=== PATIENT | male | born 1995 | race Caucasian/White ===

== ENCOUNTER 2023-11-16 02:42 | Emergency (ER) | payer BC, OTHER ==
[~2023-11-16] VITALS: Ht 167.6 cm; Wt 116.2 kg
[2023-11-16 03:28] LABS: BASO # 0.1 10^3/uL (0.0-0.2); BASO % 0.4 % (0.0-1.0); EOS # 0.2 10^3/uL (0.0-0.5); EOS % 1.5 % (0.0-3.0); HEMATOCRIT 42.8 % (42.0-52.0); HEMOGLOBIN 14.2 g/dl (13.5-17.5); LYMPH # 1.8 10^3/uL (1.5-5.0); LYMPH % 15.2 % (24.0-44.0); MEAN CORPUSCULAR HEMOGLOBIN 25.3 pg (27.0-33.0); MEAN CORPUSCULAR HGB CONC 33.2 g/dl (32.0-36.5); MEAN CORPUSCULAR VOLUME 76.3 fl (80.0-96.0); MONO # 0.9 10^3/uL (0.0-0.8); MONO % 7.9 % (2.0-8.0); NEUTROPHILS # 8.9 10^3/uL (1.5-8.5); NEUTROPHILS % 74.6 % (36.0-66.0); PLATELET COUNT, AUTOMATED 266 10^3/uL (150-450); RED BLOOD COUNT 5.61 10^6/uL (4.30-6.10)
[2023-11-16 03:54] LABS: ALBUMIN 3.6 G/DL (3.2-5.2); ALKALINE PHOSPHATASE 121 U/L (46-116); ALT/SGPT 32 U/L (7.0-40); AST/SGOT 10 U/L (<34); BILIRUBIN,DIRECT 0.2 MG/DL (<0.4); BILIRUBIN,TOTAL 0.5 MG/DL (0.3-1.2); BLOOD UREA NITROGEN 14 MG/DL (9-23); CARBON DIOXIDE LEVEL 25 MMOL/L (20-31); CHLORIDE LEVEL 106 MMOL/L (98-107); CK-MB VALUE MASS < 1.0 NG/ML (<3.6); CPK CREATINE PHOSPHOKINASE 132 U/L (46-171); CREATININE FOR GFR 0.91 MG/DL (0.70-1.30); GLOMERULAR FILTRATION RATE > 60.0 (>60); GLUCOSE, FASTING 111 MG/DL (60-100); MB/CK RELATIVE INDEX 0.75 (< OR =4); POTASSIUM SERUM 4.1 MMOL/L (3.5-5.1); SODIUM LEVEL 137 MMOL/L (136-145)
[2023-11-16 04:00] LABS: RSV AMPLIFICATION NEGATIVE (NEGATIVE)
[2023-11-16] MEDS ORDERED: ISOVUE-370 76% 100ML VIAL As Ordered ONE (06:52)
[2023-11-16] MEDS: NS 1,000 ML IV ONE (07:13)
[2023-11-16] MEDS: ALBUTEROL SULFATE 2.5MG/0.5ML INH NEB SOLN NEB ONE (08:11)
[2023-11-16 08:12] LABS: CK-MB VALUE MASS < 1.0 NG/ML (<3.6); CPK CREATINE PHOSPHOKINASE 83 U/L (46-171)
[2023-11-16] MEDS: AZITHROMYCIN 250MG TABLET PO ONE (08:21)
[2023-11-16] MEDS: cefTRIAXone SOD 1 GM in D5W MINI-BAG PLUS 50 ML IV ONE (08:21)
[2023-11-16] MEDS ORDERED: VENTAER INH (08:27)
[2023-11-16] MEDS ORDERED: CEFD300CAP PO (08:27)
[2023-11-16] MEDS ORDERED: AZIT-10 PO (08:27)
[2023-11-16] MEDS ORDERED: MUCI600T31 PO (08:27)
[2023-11-16 08:34] VITALS: BP 130/63; TEMP 97.9
[2023-11-16 08:42] VITALS: O2SAT 98
== END 2023-11-16 09:13 | disposition home or self-care (01) ==
LOC: M ED 02:42
DX: J18.1 Lobar pneumonia, unspecified organism (principal); J90 Pleural effusion, not elsewhere classified; Z79.52 Long term (current) use of systemic steroids; Z79.2 Long term (current) use of antibiotics; Z79.899 Other long term (current) drug therapy
CPT/HCPCS: 71046; 71275; 80048; 80076; 82550; 82553; 85025; 87631; 93005; 94640; 96365; 99284; J0696; Q9967

== ENCOUNTER 2025-02-13 18:18 | Emergency (ER) | payer OTHER ==
[~2025-02-13] VITALS: Ht 170.2 cm; Wt 126.8 kg
[~2025-02-13 18:18] MED LIST: AZIT-10 PO; CEFD300CAP PO; MUCI600T31 PO; VENTAER INH
[2025-02-13 20:26] VITALS: BP 150/98; TEMP 98.7; O2SAT 99
[2025-02-13] MEDS: KETOROLAC 60MG 2ML VIAL IM ONE (20:59)
[2025-02-15] MEDS ORDERED: COLA100C5 PO (12:16)
[2025-02-15] MEDS ORDERED: OXYC-517 PO (12:16)
[2025-02-15] MEDS ORDERED: ACET-907 PO (12:16)
[2025-02-15] MEDS ORDERED: CELE1CAP4 PO (12:16)
== END 2025-02-13 21:26 | disposition home or self-care (01) ==
LOC: M ED 18:18
DX: S52.225A Nondisplaced transverse fracture of shaft of left ulna, initial encounter for closed fracture (principal); S52.325A Nondisplaced transverse fracture of shaft of left radius, initial encounter for closed fracture; V86.59XA Driver of other special all-terrain or other off-road motor vehicle injured in nontraffic accident, initial encounter; Y92.009 Unspecified place in unspecified non-institutional (private) residence as the place of occurrence of the external cause; Y93.89 Activity, other specified; Y99.9 Unspecified external cause status; Z79.899 Other long term (current) drug therapy
CPT/HCPCS: 73090; 96372; 99283; J1885

== ENCOUNTER → 2025-02-15 | Day surgery (SDC) | payer OTHER ==
[~2025-02-15] VITALS: Ht 170.2 cm; Wt 126.1 kg
[~2025-02-15] MED LIST changes: +ACET-907 PO; +ACETAMINOPHEN 1000MG/100ML IV BAG As Ordered ONE; +CELE1CAP4 PO; +COLA100C5 PO; +HYDROMORPHONE HCL 0.5 MG/ 0.5 ML SYRINGE IV PRN; +HYDROmorphone HCL 2MG/ML 1ML VIAL As Ordered ONE; +LIDOCAINE 2% 100MG/5ML SDV (FOR ANES.) As Ordered ONE; +METOPROLOL 5 MG/5 ML VIAL As Ordered ONE; +MIDAZOLAM INJ 2MG/2ML VIAL As Ordered ONE; +ONDANSETRON 4MG 2ML VIAL As Ordered ONE; +OXYC-517 PO; +PROMETHAZINE 25MG/ML 1ML VIAL IV PRN; +SUGAMMADEX SODIUM 500 MG/5 ML VIAL As Ordered ONE; +fentaNYL 100 MCG/2 ML INJECTION As Ordered ONE; +propofoL 200 MG/20 ML VIAL As Ordered ONE
[2025-02-15] MEDS: TRANEXAMIC ACID 100 MG/ML 10ML VIAL IV ONE (12:15)
[2025-02-15] MEDS: ceFAZolin SOD 3 GM in DEXTROSE 5% (D5W) MINI-BAG PLU 1... IV ONE (12:15)
[2025-02-15] MEDS: TRANEXAMIC ACID 100 MG/ML 10ML VIAL As Ordered ONE (12:30)
[2025-02-15] MEDS: ceFAZolin SODIUM 3 GM VIAL As Ordered ONE (12:30)
[2025-02-15] MEDS: LR 1,000 ML IV SCH (14:35)
[2025-02-15] MEDS: ONDANSETRON 4MG 2ML VIAL IV PRN (14:55)
[2025-02-15] MEDS: METOCLOPRAMIDE INJ 10MG/2ML VIAL IV PRN (15:10)
[2025-02-15 15:24] VITALS: TEMP 98.6
[2025-02-15] MEDS: oxyCODONE 5MG TAB PO PRN (15:24)
[2025-02-15] MEDS: fentaNYL 100 MCG/2 ML INJECTION IV PRN (15:24)
[2025-02-15] MEDS: LABETALOL 100MG/20ML VIAL IV PRN (15:28)
[2025-02-15 17:00] VITALS: BP 151/71; O2SAT 94
== END | disposition home or self-care (01) ==
LOC: M SDC 09:09
PROVIDERS: ATTEND Orthopaedic Surgery
DX: S52.302A Unspecified fracture of shaft of left radius, initial encounter for closed fracture (principal); S52.202A Unspecified fracture of shaft of left ulna, initial encounter for closed fracture; V86.99XA Unspecified occupant of other special all-terrain or other off-road motor vehicle injured in nontraffic accident, initial encounter; Y93.9 Activity, unspecified; Y92.9 Unspecified place or not applicable
CPT/HCPCS: 25575; 76000; C1713; J0131; J0665; J0690; J1100; J1171; J1920; J2250; J2405; J2765; J3010

== ENCOUNTER → 2025-04-13 | Outpatient (CLI) | payer OTHER ==
[~2025-04-13] MED LIST changes: -ACETAMINOPHEN 1000MG/100ML IV BAG As Ordered ONE; -HYDROMORPHONE HCL 0.5 MG/ 0.5 ML SYRINGE IV PRN; -HYDROmorphone HCL 2MG/ML 1ML VIAL As Ordered ONE; -LIDOCAINE 2% 100MG/5ML SDV (FOR ANES.) As Ordered ONE; -METOPROLOL 5 MG/5 ML VIAL As Ordered ONE; -MIDAZOLAM INJ 2MG/2ML VIAL As Ordered ONE; -ONDANSETRON 4MG 2ML VIAL As Ordered ONE; -PROMETHAZINE 25MG/ML 1ML VIAL IV PRN; -SUGAMMADEX SODIUM 500 MG/5 ML VIAL As Ordered ONE; -fentaNYL 100 MCG/2 ML INJECTION As Ordered ONE; -propofoL 200 MG/20 ML VIAL As Ordered ONE
== END ==
LOC: M SOG 07:20
PROVIDERS: ATTEND Physician Assistant
DX: S52.202D Unspecified fracture of shaft of left ulna, subsequent encounter for closed fracture with routine healing (principal); S52.302D Unspecified fracture of shaft of left radius, subsequent encounter for closed fracture with routine healing; W18.30XD Fall on same level, unspecified, subsequent encounter